=== PATIENT | male | born 1940 | race Caucasian/White ===

== ENCOUNTER 2021-07-05 07:19 | Day surgery (SDC) | payer OTHER ==
[~2021-07-05] VITALS: Ht 162.6 cm; Wt 76.2 kg
[2021-07-05] MEDS ORDERED: ARTICAINE HCL/EPINEPHRINE 4%/1:200,000 BIT 1.7 ML CARTRIDGE IJ ONE (07:20)
[2021-07-05] MEDS ORDERED: NS 100 ML BAG IV ONE (07:20)
[2021-07-05] MEDS ORDERED: BENZOCAINE 20% GEL 32 GM BOTTLE MM ONE (07:20)
[2021-07-05] MEDS ORDERED: NS IRRIG SOLN 1000 ML IR ONE (07:20)
[2021-07-05 14:01] VITALS: BP_SYST 159
== END 2021-07-05 11:15 | disposition home or self-care (01) ==
LOC: SDS 07:19 → SMU 07:29 → SDS 11:15
PROVIDERS: ATTEND Dentist General Practice
DX: M27.2 Inflammatory conditions of jaws (principal); M89.8X0 Other specified disorders of bone, multiple sites; M26.03 Mandibular hyperplasia; G47.33 Obstructive sleep apnea (adult) (pediatric); M85.9 Disorder of bone density and structure, unspecified; K05.223 Aggressive periodontitis, generalized, severe; K12.2 Cellulitis and abscess of mouth; I10 Essential (primary) hypertension; K05.5 Other periodontal diseases; N40.0 Benign prostatic hyperplasia without lower urinary tract symptoms; Z79.899 Other long term (current) drug therapy
CPT/HCPCS: 21025; 21215; 21248; 36415; 70140; 87426; C1713